=== PATIENT | male | born 1975 | race African-American/Black ===

== ENCOUNTER 2016-11-20 14:24 | Emergency (ER) | payer OTHER ==
[~2016-11-20] VITALS: Ht 185.4 cm; Wt 119.1 kg
[~2016-11-20 14:24] MED LIST: OLME20TA14 PO; OMEP10 PO
[2016-11-20] MEDS ORDERED: HYDR25TA PO (14:40)
[2016-11-20] MEDS ORDERED: LOSA25TA21 PO (14:40)
[2016-11-20] MEDS ORDERED: ALLO100T PO (14:40)
[2016-11-20] MEDS ORDERED: LIDOCAINE HCL BUFFERED 1% 20 ML VIAL INJ ONE (15:15)
[2016-11-20 16:45] VITALS: BP 132/83
[2016-11-20] MEDS ORDERED: BACITRACIN 0.9 GM PACKET OINTMENT TP ONE (16:45)
== END 2016-11-20 17:00 | disposition home or self-care (01) ==
LOC: EMS 14:25
DX: S81.811A Laceration without foreign body, right lower leg, initial encounter (principal); I10 Essential (primary) hypertension; W22.8XXA Striking against or struck by other objects, initial encounter; Y93.H2 Activity, gardening and landscaping; Y92.89 Other specified places as the place of occurrence of the external cause; Y99.8 Other external cause status
CPT/HCPCS: 12002; 73590; 99284; J3490